=== PATIENT | male | born 1990 | race Caucasian/White ===

== ENCOUNTER 2019-08-01 14:30 | Emergency (ER) | payer SELFPAY ==
[2019-08-01 14:42] VITALS: BP 148/95; PULSE 76; RESP 18; TEMP 36.9; O2SAT 97; BMI 24.4
[2019-08-01] MEDS: tetanus-dipt-pertussis 0.5 mL SDV IM (15:02)
--- NOTE | 2019-08-01 15:02 | W.ED.EXTPRO ---
HPI - Extremity Problem General: Chief complaint: Extremity Injury, Upper Stated complaint: arm lac Time Seen by Provider: 08/01/19 14:36 History of Present Illness: HPI Narrative: Cut left forearm with a level vial grinder today approximately 30 minutes ago while he was working at home- by accident Complaint: other (Laceration left forearm) Onset (ago): minute(s) Pain Consistency: constant Location: left and upper extremity Quality: aching Associated symptoms: Deny fever(s) Review of Systems Const: Denies: fever or chills Skin/Breast: Reports: other (Laceration to left forearm) Psych: Denies: anxiety or depression PFS ED PFSH: Social History Smoking and tobacco status: current every day smoker Physical Exam Const: COMMON NORMALS: no apparent distress Psych: COMMON NORMALS: mental status grossly normal Skin: OTHER: Laceration to the left forearm not actively bleeding neurovascular status is distant is normal Procedures Laceration Laceration 1: Site: upper extremity Side (If applicable): left Size (cm): 3 Description: linear Depth: simple, single layer Local Anesthetic: lidocaine 1% Amount of anesthesia used (mL): 2 Pre-repair: wound explored, irrigated extensively and deep structures intact Skin layer closed with: vicryl Size (cm): 4-0 Number of sutures: 6 Technique: simple, interrupted Course Vital Signs: Vital signs: Vital Signs Temperature 98.4 F 08/01/19 14:42 Pulse Rate 76 08/01/19 14:42 Respiratory Rate 18 08/01/19 14:42 Blood Pressure 148/95 08/01/19 14:42 Pulse Oximetry 97 08/01/19 14:42 Discharge Plan Discharge Patient Disposition: Home, Self-Care Clinical Impression: Laceration of forearm, left Qualifiers: Encounter type: initial encounter Qualified Code(s): S51.812A - Laceration without foreign body of left forearm, initial encounter Condition: Stable Prescriptions: New Keflex 500 mg capsule 500 mg PO TID 7 Days Qty: 21 RF: 0 Discharge Orders: Discharge Order (Routine); Ordered 08/01/19 Ordered By: Flynn Salinas Referrals: [facility] [Other] Discharge Diet: Usual diet Discharge Activity: Resume usual activity Patient Instructions: Laceration (ED) Activity Restrictions/Additional Instructions: Follow-up with medical provider as directed. Take medications as prescribed. Return to the ER or your medical provider if condition worsens. Please read and understand discharge instructions. If any questions ask please. Keep area clean and dry. Take antibiotics for 7 days. Remove sutures in 7 days. Signs and symptoms of infection develop return here to the ER follow-up with your primary care provider. Coding Level of Care Code ED [employer] for [facility]
== END 2019-08-01 15:21 | disposition home or self-care (01) ==
PROVIDERS: Emergency Provider Nurse Practitioner Family
DX: S51.812A Laceration without foreign body of left forearm, initial encounter (principal); W27.8XXA Contact with other nonpowered hand tool, initial encounter; F17.200 Nicotine dependence, unspecified, uncomplicated; Z23 Encounter for immunization
CPT/HCPCS: 12002; 12345; 90471; 90715; 99281; 99282